=== PATIENT | female | born 1990 | race Caucasian/White ===

== ENCOUNTER 2017-01-18 19:36 | Emergency (ER) | payer MEDICAID, OTHER ==
[~2017-01-18 19:36] MED LIST: AZIT500T2 PO; CONCCAP2 PO
[2017-01-18 19:58] VITALS: BP 131/83; PULSE 112; RESP 18
[2017-01-18 20:00] VITALS: TEMP 98
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
[2017-01-18 20:30] VITALS: RESP 18
== END 2017-01-18 23:43 | disposition home or self-care (01) ==
LOC: HOBED 19:36
DX: O99.213 Obesity complicating pregnancy, third trimester (principal); E66.9 Obesity, unspecified; Z3A.40 40 weeks gestation of pregnancy
CPT/HCPCS: 59025

== ENCOUNTER 2017-01-21 08:00 | Inpatient (IN) | payer MEDICAID ==
[2017-01-21] VITALS (79 sets, daily range): BP systolic 89–142; BP diastolic 48–107; PULSE 68–113; RESP 16–18; TEMP 97.8–98.6
[~2017-01-21] VITALS: Ht 167.6 cm; Wt 120.0 kg
[2017-01-21] MEDS: LACTATED RINGER'S 1000 ML INJ 1,000 ML IV SCH ×2 (08:53→13:52)
[2017-01-21] MEDS ORDERED: LACTATED RINGER'S 1000 ML INJ 1,000 ML IV PRN (08:53)
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
[2017-01-21] MEDS ORDERED: SODIUM CHLORID 0.9% 500 ML INJ 500 ML IV PRN (09:00)
[2017-01-21] MEDS ORDERED: LIDOCAINE HCL 1% 50 ML VIAL INFIL PRN (09:00)
[2017-01-21] MEDS ORDERED: OXYTOCIN 30 UNITS-500ML PREMIX 500 ML IV ONE (09:00)
[2017-01-21] MEDS ORDERED: MINERAL OIL 10 ML VIAL TOPICAL PRN (09:00)
[2017-01-21] MEDS ORDERED: LIDOCAINE HCL 1% 50 ML VIAL I-DERMAL PRN (09:00)
[2017-01-21] MEDS ORDERED: CITRIC ACID-SODIUM CITRATE LIQ 30 ML UDC PO SCH (09:00)
[2017-01-21] MEDS ORDERED: ceFAZolin 2 GM PREMIX 50 ML IV ONE (09:00)
[2017-01-21] MEDS ORDERED: ONDANSETRON HCL 4 MG/2 ML VIAL IV PRN (09:00)
[2017-01-21] MEDS ORDERED: SODIUM CHLOR 0.9% 1000 ML INJ 1,000 ML IV PRN (09:13)
[2017-01-21 09:17] LABS: BASOPHIL % 0.2 % (0.0-2.0); EOSINOPHIL # 0.2 TH/MM3 (0-0.4); EOSINOPHIL % 1.2 % (0.0-4.0); HEMATOCRIT 38.2 % (35.0-46.0); HEMO FLAGS DIFF FINAL; LYMPH % 16.2 % (9.0-44.0); LYMPHOCYTE # 2.2 TH/MM3 (1.0-4.8); MEAN CELL VOLUME 88.5 FL (80.0-100.0); MEAN CORPUSCULAR HEMOGLOBIN 29.4 PG (27.0-34.0); MEAN CORPUSCULAR HGB CONC 33.2 % (32.0-36.0); MONO % 7.7 % (0.0-8.0); NEUT % 74.7 % (16.0-70.0); PLATELET COUNT 239 TH/MM3 (150-450); RED BLOOD COUNT 4.31 MIL/MM3 (4.00-5.30); RED CELL DISTRIBUTION WIDTH 14.1 % (11.6-17.2); WHITE BLOOD COUNT 13.4 TH/MM3 (4.0-11.0)
[2017-01-21 09:26] LABS: BLOOD, URINE TRACE (NEG); COMMENT (UR) CULT NOT INDICATED; CULTURE IF INDICATED CULT NOT INDICATED; GLUCOSE,URINE NEG (NEG); KETONE, URINE NEG (NEG); MUCUS URINE FEW /lpf (OCC); NITRITE,URINE NEG (NEG); PH, URINE 6.5 (5.0-8.5); SQUAMOUS EPITHELIAL CELL URINE 2 /hpf (0-5); URINE COLOR YELLOW (YELLW/STRAW)
[2017-01-21] MEDS ORDERED: OXYTOCIN 30 UNITS-500ML PREMIX 500 ML IV SCH ×2 (09:30→22:00)
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
--- NOTE | 2017-01-21 10:53 | PD.LABORPN ---
Subjective Subjective Patient seen and examined. Vital signs stable. heart tracing currently category 1, reassuring. Patient without complaints. AROM completed without complications. (Vaughn Celis MD R2) Objective Vital Signs Vital Signs Date Time Temp Pulse Resp B/P (MAP) Pulse Ox O2 Delivery O2 Flow Rate FiO2 01/21/17 10:00 18 01/21/17 09:45 79 18 134/85 (101) 01/21/17 09:00 18 01/21/17 08:57 81 137/74 (95) Objective Pelvic Exam: Cervix: Mid-posterior Dilatation: 4 cm Effacement: 50% Station: -2 Presentation: Vertex Membranes: AROM FHT's: Category: 1 Baseline: 140 Reactive: Positive Variability: Moderate Decels: None Weeks Gestation: 40 Gest Age Assessed Date: Jan 21, 2017 Gest Age Assessed Time: 10:50 Pt started active labor?: Yes Active labor start date: Jan 21, 2017 Active labor start time: 10:00 Medical induction of labor?: Yes Medical induction start date: Jan 21, 2017 Medical induction start time: 10:00 Artificial rupture of membrane: Yes Artificial ROM date: Jan 21, 2017 Artifical ROM time: 10:51 (Vaughn Celis MD R2) Assessment/Plan Problem List: (1) 40 weeks gestation of ICD Codes: Z3A.40 - 40 weeks gestation of Status: Acute (2) Decreased movement affecting management of mother, antepartum ICD Codes: O36.8190 - Decreased movements, unspecified trimester, not applicable or unspecified Status: Acute (3) Irregular uterine contractions ICD Codes: O62.2 - Other uterine inertia Status: Acute Assessment and Plan Mrs. Rizo is a 26-year-old at 40/3 weeks gestation presenting to the ED with a chief complaint of decreased movement. -Continue routine antepartum care - heart tracing category 1, reassuring -AROM completed without complication -Patient currently without complaint -Patient receiving Ancef she is GBS positive -Pitocin currently at 4 mU/m DW: Dr. Austin (Vaughn Celis MD R2) Assessment and Plan Patient seen and evaluated with resident under direct supervision, agree with assessment and plan. (Prem Austin MD) Vaughn Celis MD R2 Jan 21, 2017 10:53 Prem Austin MD Jan 21, 2017 13:53
[2017-01-21] MEDS ORDERED: ePHEDrine/NS 25 MG/5 ML SYR ONE (12:34)
[2017-01-21] MEDS ORDERED: fentaNYL 2MCG-BUPIV 0.125% INJ 100 ML ONE ×2 (12:34→20:57)
[2017-01-21] MEDS ORDERED: MEASLES, MUMPS, RUBELLA VACCINE 0.5 ML VIAL SQ ONE (16:00)
[2017-01-21] MEDS ORDERED: DIPHTH/TETANUS/ACEL PERTUSSIS (BOOSTER) 0.5 ML VIAL/PFS IM ONE (16:00)
[2017-01-21] MEDS ORDERED: BENZOCAINE 20% TOPICAL SPRAY 60 ML CAN TOPICAL PRN (22:00)
[2017-01-21] MEDS ORDERED: ZOLPIDEM TARTRATE 5 MG TAB PO PRN (22:00)
[2017-01-21] MEDS ORDERED: ALUMINUM/MAGNESIUM/SIMETH 30 ML CUP PO PRN (22:00)
[2017-01-21] MEDS ORDERED: WITCH HAZEL 50%/GLYCERIN 12.5% 40 PAD JAR TOPICAL PRN (22:00)
[2017-01-21] MEDS ORDERED: SODIUM CHLORIDE 0.9% FLUSH 10 ML FLUSH IV FLUSH PRN (22:00)
[2017-01-21] MEDS ORDERED: ONDANSETRON ODT 4 MG TAB PO PRN (22:00)
[2017-01-21] MEDS ORDERED: DOCUSATE SODIUM 50 MG/SENNA 8.6 MG TAB PO PRN (22:00)
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
[2017-01-22] VITALS: BP 138/75; PULSE 86; RESP 16; TEMP 98.3
[2017-01-22] MEDS: IBUPROFEN 600 MG TAB PO PRN ×4 (03:39→22:10)
[2017-01-22] MEDS: ACETAMINOPHEN 325 MG TAB PO PRN ×4 (03:39→22:10)
--- NOTE | 2017-01-22 08:08 | HHI.OB ---
Subjective Post Day: 1 Remarks Pt seen and examined this morning. day # 1 AFVSS overnight. Decreased lochia. Denies dysuria. No breast tenderness. She is feeding the baby via breast. Appetite good. No nausea or vomiting. Patient has had a bowel movement. Ambulating well. Denies calf pain or shortness of breath. Otherwise, she is doing well this morning and has no other concerns. (Vaughn Celis MD R2) Remarks Patient seen and evaluated with resident under direct supervision, agree with assessment and plan. (Prem Austin MD) Objective Vitals/I&O Vital Signs Date Time Temp Pulse Resp B/P (MAP) Pulse Ox O2 Delivery O2 Flow Rate FiO2 01/22/17 00:00 98.3 16 01/22/17 00:00 86 138/75 (96) 01/21/17 23:01 83 124/60 (81) 01/21/17 22:59 18 01/21/17 22:46 87 122/66 (84) 01/21/17 22:45 18 01/21/17 22:31 97 114/73 (87) 01/21/17 22:30 18 01/21/17 22:16 103 89/56 (67) 01/21/17 22:15 18 01/21/17 22:01 113 132/67 (88) 01/21/17 22:00 98.0 18 01/21/17 21:57 112 123/90 (101) 01/21/17 21:01 75 103/48 (66) 01/21/17 20:46 75 105/51 (69) 01/21/17 20:31 77 126/61 (82) 01/21/17 20:16 69 121/79 (93) 01/21/17 19:46 133/107 (116) 01/21/17 19:31 75 117/70 (86) 01/21/17 19:28 18 01/21/17 19:19 71 118/75 (89) 01/21/17 19:16 85 113/95 (101) 01/21/17 19:01 82 111/66 (81) 01/21/17 18:33 18 01/21/17 18:31 102 93/61 (72) 01/21/17 18:00 98.6 18 01/21/17 17:31 85 120/70 (87) 01/21/17 17:15 18 01/21/17 17:01 81 121/74 (90) 01/21/17 16:42 17 01/21/17 16:31 89 115/69 (84) 01/21/17 16:15 18 01/21/17 16:01 82 109/59 (76) 01/21/17 15:45 97.9 01/21/17 15:38 17 01/21/17 15:31 68 136/66 (89) 01/21/17 15:12 18 01/21/17 15:01 69 134/79 (97) 01/21/17 14:45 17 01/21/17 14:31 79 129/72 (91) 01/21/17 14:25 76 01/21/17 14:20 80 01/21/17 14:16 72 123/71 (88) 01/21/17 14:15 91 01/21/17 14:05 84 01/21/17 14:01 82 123/70 (87) 01/21/17 14:00 80 01/21/17 13:55 77 01/21/17 13:50 80 01/21/17 13:46 82 118/73 (88) 01/21/17 13:45 82 01/21/17 13:40 77 01/21/17 13:35 90 01/21/17 13:31 76 106/71 (83) 01/21/17 13:30 78 01/21/17 13:26 76 120/65 (83) 01/21/17 13:25 79 01/21/17 13:21 84 127/65 (85) 01/21/17 13:20 92 01/21/17 13:18 17 01/21/17 13:16 89 122/61 (81) 01/21/17 13:15 93 01/21/17 13:11 16 01/21/17 13:11 89 117/58 (77) 01/21/17 13:10 97 01/21/17 13:08 90 114/58 (76) 01/21/17 13:07 99 97/49 (65) 01/21/17 13:05 89 01/21/17 13:01 85 117/56 (76) 01/21/17 13:00 17 01/21/17 13:00 85 01/21/17 13:00 98.0 01/21/17 12:59 89 119/55 (76) 01/21/17 12:50 97 01/21/17 12:45 80 01/21/17 12:34 17 01/21/17 12:00 97.8 01/21/17 11:52 18 01/21/17 11:50 79 142/88 (106) 01/21/17 11:15 18 01/21/17 10:45 18 01/21/17 10:00 18 01/21/17 09:45 79 18 134/85 (101) 01/21/17 09:00 18 01/21/17 08:57 81 137/74 (95) Objective Remarks GENERAL: Well-nourished, well-developed patient. CARDIOVASCULAR: Regular rate and rhythm without murmurs, gallops, or rubs. RESPIRATORY: Breath sounds equal bilaterally. No accessory muscle use. ABDOMEN/GI: Abdomen soft, non-tender. Fundus: Firm, non-tender at umbilicus. GENITOURINARY: Light to moderate bleeding. EXTREMITIES: No cyanosis or edema, non-tender, without signs of DVT. Medications and IVs Current Medications Medications (Trade) Dose Ordered Sig/Jarad Route Start Time Stop Time Status Last Admin (NS Flush) 2 ml BID IV FLUSH 01/22/17 09:00 (NS Flush) 2 ml UNSCH PRN IV FLUSH 01/21/17 22:00 (Tylenol) 650 mg Q4H PRN PO 01/21/17 22:00 01/22/17 03:39 (Motrin) 600 mg Q6H PRN PO 01/21/17 22:00 01/22/17 03:39 (Americaine 20% Top Spr) 1 spray Q4H PRN TOPICAL 01/21/17 22:00 (Tucks Pads) 1 applic QID PRN TOPICAL 01/21/17 22:00 (Becky-Colace) 2 tab Q12H PRN PO 01/21/17 22:00 (Ambien) 5 mg HS PRN PO 01/21/17 22:00 (Mag-Al Plus Susp Liq) 15 ml Q8H PRN PO 01/21/17 22:00 (Zofran Odt) 4 mg Q6H PRN PO 01/21/17 22:00 (Vaughn Celis MD R2) Assessment/Plan Problem List: (1) 40 weeks gestation of ICD Codes: Z3A.40 - 40 weeks gestation of Status: Acute (2) Decreased movement affecting management of mother, antepartum ICD Codes: O36.8190 - Decreased movements, unspecified trimester, not applicable or unspecified Status: Acute (3) Irregular uterine contractions ICD Codes: O62.2 - Other uterine inertia Status: Acute (4) (spontaneous vaginal delivery) ICD Codes: O80 - Encounter for full-term uncomplicated delivery Assessment and Plan 26 y/o female who is day # 1 s/p . -Continue routine care. -Motrin PRN pain. -Encouraged OOB. Advised pelvic rest for 6 wks. -Re: ctrl, she would like to discuss her options at her follow-up appointment. -Anticipate discharge likely tomorrow, pending clinical course. gianluca Austin MD Discharge Planning Tomorrow pending clinical course (Vaughn Celis MD R2) Vaughn Celis MD R2 Jan 22, 2017 08:08 Prem Austin MD Jan 22, 2017 09:14
[2017-01-22 08:25] VITALS: BP 122/76; PULSE 79; RESP 20; TEMP 97.8
[2017-01-22] MEDS ORDERED: IBUP-232 PO (15:44)
[2017-01-22] MEDS ORDERED: SENN1TAB PO (15:44)
--- NOTE | 2017-01-22 15:45 | HHI.DCPOC ---
Discharge Care Plan Diagnosis: (1) (spontaneous vaginal delivery) Report Symptoms to Your Doctor -Temperature above 100.5 degrees -Redness, of incision or excessive or foul smelling drainage -Unusual pain or calf pain -Increased vaginal bleeding -Painful or difficulty urinating -Feelings of extreme sadness or anxiety after 2 weeks Goals to Promote Your Health * To prevent worsening of your condition and complications * To maintain your health at the optimal level Directions to Meet Your Goals Take your medications as prescribed Follow your dietary instruction Follow activity as directed Ensure plenty of rest for recovery Drink fluids for hydration Keep your appointments as scheduled Take your immunizations and boosters as scheduled If your symptoms worsen call your PCP, if no PCP go to Urgent Care Center or Emergency Room Smoking is Dangerous to Your Health. Avoid second hand smoke Call the 24-hour crisis hotline for domestic abuse at Vaughn Celis MD R2 Jan 22, 2017 15:45
[2017-01-22] MEDS: SODIUM CHLORIDE 0.9% FLUSH 10 ML FLUSH IV FLUSH SCH ×2 (16:00→20:21)
[2017-01-22 20:30] VITALS: BP_SYST 124; BP_DIAS 74; BP_DIAS 75; PULSE 75; RESP 18; TEMP 98.3
--- NOTE | 2017-01-23 07:56 | HHI.OB ---
Subjective Post Day: 2 Remarks Pt seen and examined this morning. day # 2. AFVSS overnight. Decreased lochia. Denies dysuria. No breast tenderness. She is feeding the baby via breast. Appetite good. No nausea or vomiting. Patient has had a bowel movement. Ambulating well. Denies calf pain or shortness of breath. Otherwise, she is doing well this morning and has no other concerns. Objective Vitals/I&O Vital Signs Date Time Temp Pulse Resp B/P (MAP) Pulse Ox O2 Delivery O2 Flow Rate FiO2 01/22/17 20:30 124/75 (91) 01/22/17 20:30 98.3 01/22/17 20:30 124/74 (91) 01/22/17 20:30 75 18 01/22/17 08:25 79 20 122/76 (91) 01/22/17 08:25 97.8 Objective Remarks GENERAL: Well-nourished, well-developed patient. CARDIOVASCULAR: Regular rate and rhythm without murmurs, gallops, or rubs. RESPIRATORY: Breath sounds equal bilaterally. No accessory muscle use. ABDOMEN/GI: Abdomen soft, non-tender. Fundus: Firm, non-tender at umbilicus. GENITOURINARY: Light to moderate bleeding. EXTREMITIES: No cyanosis or edema, non-tender, without signs of DVT. Medications and IVs Current Medications Medications (Trade) Dose Ordered Sig/Jarad Route Start Time Stop Time Status Last Admin (NS Flush) 2 ml BID IV FLUSH 01/22/17 09:00 (NS Flush) 2 ml UNSCH PRN IV FLUSH 01/21/17 22:00 (Tylenol) 650 mg Q4H PRN PO 01/21/17 22:00 01/22/17 22:10 (Motrin) 600 mg Q6H PRN PO 01/21/17 22:00 01/22/17 22:10 (Americaine 20% Top Spr) 1 spray Q4H PRN TOPICAL 01/21/17 22:00 (Tucks Pads) 1 applic QID PRN TOPICAL 01/21/17 22:00 (Becky-Colace) 2 tab Q12H PRN PO 01/21/17 22:00 (Ambien) 5 mg HS PRN PO 01/21/17 22:00 (Mag-Al Plus Susp Liq) 15 ml Q8H PRN PO 01/21/17 22:00 (Zofran Odt) 4 mg Q6H PRN PO 01/21/17 22:00 Assessment/Plan Problem List: (1) 40 weeks gestation of ICD Codes: Z3A.40 - 40 weeks gestation of Status: Acute (2) Decreased movement affecting management of mother, antepartum ICD Codes: O36.8190 - Decreased movements, unspecified trimester, not applicable or unspecified Status: Acute (3) Irregular uterine contractions ICD Codes: O62.2 - Other uterine inertia Status: Acute (4) (spontaneous vaginal delivery) ICD Codes: O80 - Encounter for full-term uncomplicated delivery Assessment and Plan 26 y/o female who is day # 2 s/p . -Continue routine care. -Motrin PRN pain. -Encouraged OOB. Advised pelvic rest for 6 wks. -Re: ctrl, she would like to discuss her options at her follow-up appointment. -Anticipate discharge today with baby. gianluca Armenta MD Discharge Planning Today with baby. Vaughn Celis MD R2 Jan 23, 2017 07:56
[2017-01-23 08:00] VITALS: BP 115/87; PULSE 54; RESP 16; TEMP 98.4
[2017-01-23] MEDS: ACETAMINOPHEN 325 MG TAB PO PRN ×2 (09:57→16:32)
[2017-01-23] MEDS: IBUPROFEN 600 MG TAB PO PRN ×2 (09:57→16:33)
== END 2017-01-23 17:48 | disposition home or self-care (01) | DRG 775 ==
LOC: HOBED 08:00 → H2EB 08:58 → H1EA 23:42
PROVIDERS: ADMIT Obstetrics & Gynecology Obstetrics; ATTEND Obstetrics & Gynecology Obstetrics
PROC: 10E0XZZ Delivery of Products of Conception, External Approach (ICD-10-PCS; principal; 2017-01-21)
PROC: 10907ZC Drainage of Amniotic Fluid, Therapeutic from Products of Conception, Via Natural or Artificial Opening (ICD-10-PCS; 2017-01-21)
PROC: 3E0S3CZ (ICD-10-PCS; 2017-01-21)
PROC: 00HU33Z Insertion of Infusion Device into Spinal Canal, Percutaneous Approach (ICD-10-PCS; 2017-01-21)
DX: O36.8130 Decreased fetal movements, third trimester, not applicable or unspecified (principal); O99.824 Streptococcus B carrier state complicating childbirth; Z88.0 Allergy status to penicillin; Z37.0 Single live birth; Z3A.40 40 weeks gestation of pregnancy
CPT/HCPCS: 59025; 81001; 85025; 86592; 86900; 86901; 90715; J0690; J2590; J7120